=== PATIENT | male | born 1960 | race Caucasian/White ===

== ENCOUNTER 2023-10-21 13:07 | Inpatient (IN) | payer OTHER ==
--- NOTE | 2023-10-21 13:17 | ED ---
General Adult HPI - General Chief complaint: Nausea/Vomiting/Diarrhea Stated complaint: vomiting Time Seen by Provider: 10/21/23 13:13 Source: patient, family, EMS, RN notes reviewed Mode of arrival: EMS Limitations: no limitations - History of Present Illness Initial comments: Patient is a 62-year-old male present to the emergency department with concerns for nausea and vomiting. Onset of symptoms was around 11:30 AM. Patient has vomited multiple times, possibly up to 20. Patient still has nausea. Patient feels dehydrated. Patient states he may be slightly short of breath. No abdominal pain no constipation or diarrhea. No chest pain. Patient is a smoker and does have chronic dyspnea - Related Data Home Medications Medication Instructions Recorded Confirmed No Known Home Medications 10/21/23 10/21/23 Allergies Allergy/AdvReac Type Severity Reaction Status Date / Time No Known Allergies Allergy Verified 10/21/23 13:55 Review of Systems ROS Statement: Those systems with pertinent positive or pertinent negative responses have been documented in the HPI. ROS Other: All systems not noted in ROS Statement are negative. Constitutional: Denies: fever Eyes: Denies: eye pain ENT: Denies: ear pain Respiratory: Reports: as per HPI Cardiovascular: Denies: chest pain Gastrointestinal: Reports: nausea, vomiting. Denies: abdominal pain Genitourinary: Denies: dysuria Musculoskeletal: Denies: back pain Skin: Denies: rash Past Medical History Past Medical History: Myocardial Infarction ([place]) History of Any Multi-Drug Resistant Organisms: None Reported Additional Past Surgical History / Comment(s): 2 stents Smoking Status: Current every day smoker Past Alcohol Use History: Rare Past Drug Use History: None Reported General Exam Limitations: no limitations General appearance: alert Head exam: Present: normocephalic Eye exam: Present: normal appearance Neck exam: Present: normal inspection Respiratory exam: Present: normal lung sounds bilaterally Cardiovascular Exam: Present: regular rate, normal rhythm, normal heart sounds Expanded Peripheral pulses: 2+: Radial (R), Radial (L), Posterior Tibialis (R), Posterior Tibialis (L) GI/Abdominal exam: Present: soft. Absent: tenderness Extremities exam: Present: normal inspection. Absent: pedal edema, calf tenderness Neurological exam: Present: alert Psychiatric exam: Present: normal affect, normal mood Skin exam: Present: normal color Course Vital Signs 10/21/23 10/21/23 13:09 14:07 Pulse Rate 93 89 Respiratory 24 18 Rate Blood Pressure 105/70 116/76 O2 Sat by Pulse 100 99 Oximetry - Reevaluation(s) Reevaluation #1: 10/21/23 13:35 I did speak with Dr. Muhammad who did review EKGs and agrees no evidence of STEMI. EKG Findings - EKG Results: EKG: interpreted by ERMD (First-degree AV block AK 210. Left axis. Intraventricular conduction delay. Inferior Q waves. Artifact present. Nonspecific ST-T.), sinus rhythm Medical Decision Making - Medical Decision Making EKG #2 interpreted by myself shows sinus rhythm with a rate of 88. Left axis. Inferior Q waves. Nonspecific ST. Some artifact is present. EKG #3 interpreted by myself shows sinus rhythm with a rate of 86. Left axis. Intraventricular conduction delay. Inferior Q waves. EKG #4 interpreted by myself shows sinus rhythm with a rate of 86. AK 192. Left axis. Intraventricular conduction delay. Inferior Q waves. Nonspecific ST-T. Was pt. sent in by a medical professional or institution (, PA, [employer], urgent care, hospital, or care home...) When possible be specific @ -No Did you speak to anyone other than the patient for history (EMS, parent, family, police, friend...)? What history was obtained from this source @ -EMS helps provide history including presentation and there are concerns regarding EKG Did you review nursing and triage notes (agree or disagree)? Why? @ -I reviewed and agree with nursing and triage notes Were old charts reviewed (outside hosp., previous admission, EMS record, old EKG, old radiological studies, urgent care reports/EKG's, care home records)? Report findings @ -No old charts were reviewed Differential Diagnosis (chest pain, altered mental status, abdominal pain women, abdominal pain men, vaginal bleeding, weakness, fever, dyspnea, syncope, headache, dizziness, GI bleed, back pain, seizure, CVA, palpatations, mental health, musculoskeletal)? @ -Differential Abdominal Pain Men: Appendicitis, cholecystitis, diverticulosis, ischemic bowel, pancreatitis, hepatitis, UTI, gastroenteritis, AAA, incarcerated hernia, bowel obstruction, constipation, inflammatory bowel, hepatitis, peptic ulcer disease, splenic infarction, perforated viscus, testicular torsion, this is not meant to be an all-inclusive list differential Chest Pain: Stable Angina, Unstable Angina, STEMI, NSTEMI Aortic Dissection, Pneumothorax, Musculoskeletal, Esophageal Spasm GERD, Cholecystitis, Pancreatitis, Zoster, this is not meant to be an all-inclusive list. EKG interpreted by me (3pts min.). @ -As above X-rays interpreted by me (1pt min.). @ -Chest x-ray shows no acute process CT interpreted by me (1pt min.). @ -None done U/S interpreted by me (1pt. min.). @ -None done What testing was considered but not performed or refused? (CT, X-rays, U/S, labs)? Why? @ -None What meds were considered but not given or refused? Why? @ -None Did you discuss the management of the patient with other professionals (professionals i.e. , PA, [employer], lab, RT, psych nurse, social worker clinical, clinical dietician, teacher, marketing officer, spring encaser)? Give summary @ -Case was discussed with Dr. Muhammad who did review EKGs. Case also discussed with [facility], Dr. Chua who will admit covering hospital call Was smoking cessation discussed for >3mins.? @ -No Was critical care preformed (if so, how long)? @ -No Were there social determinants of health that impacted care today? How? (Homelessness, low income, unemployed, alcoholism, drug addiction, transportation, low edu. Level, literacy, decrease access to med. care, nursing home, rehab)? @ -No Was there de-escalation of care discussed even if they declined (Discuss DNR or withdrawal of care, Hospice)? DNR status @ -No What co-morbidities impacted this encounter? (DM, HTN, Smoking, COPD, CAD, Cancer, CVA, ARF, Chemo, Hep., AIDS, mental health diagnosis, sleep apnea, morbid obesity)? @ -Coronary artery disease Was patient admitted / discharged? Hospital course, mention meds given and route, prescriptions, significant lab abnormalities, going to OR and other pertinent info. @ -Patient reevaluated and starting to feel somewhat better. Nausea improved. Blood pressure improved. Still no chest pain. Patient and family are updated on results and plan. Patient will be admitted and cardiac enzymes will be rechecked. Undiagnosed new problem with uncertain prognosis? @ -No Drug Therapy requiring intensive monitoring for toxicity (Heparin, Nitro, Insulin, Cardizem)? @ -No Were any procedures done? @ -No Diagnosis/symptom? @ -Vomiting Acute, or Chronic, or Acute on Chronic? @ -Acute Uncomplicated (without systemic symptoms) or Complicated (systemic symptoms)? @ -Default Side effects of treatment? @ -No Exacerbation, Progression, or Severe Exacerbation? @ -No Poses a threat to life or bodily function? How? (Chest pain, [place], [place], pneumonia, PE, COPD, DKA, ARF, appy, cholecystitis, CVA, Diverticulitis, Homicidal, Suicidal, threat to staff... and all critical care pts) @ -No - Lab Data Result diagrams: 10/21/23 13:17 10/21/23 13:17 Lab Results 10/21/23 10/21/23 10/21/23 Range/Units 13:17 13:17 13:17 WBC 11.8 H (3.8-10.6) k/uL RBC 5.02 (4.30-5.90) m/uL Hgb 15.3 (13.0-17.5) gm/dL Hct 45.8 (39.0-53.0) % MCV 91.4 (80.0-100.0) fL MCH 30.4 (25.0-35.0) pg MCHC 33.3 (31.0-37.0) g/dL RDW 12.5 (11.5-15.5) % Plt Count 216 (150-450) k/uL MPV 7.4 Neutrophils % 80 % Lymphocytes % 12 % Monocytes % 6 % Eosinophils % 1 % Basophils % 0 % Neutrophils # 9.5 H (1.3-7.7) k/uL Lymphocytes # 1.4 (1.0-4.8) k/uL Monocytes # 0.7 (0-1.0) k/uL Eosinophils # 0.1 (0-0.7) k/uL Basophils # 0.1 (0-0.2) k/uL PT 12.0 (10.0-12.5) sec INR 1.1 (<1.2) APTT 23.7 (22.0-30.0) sec D-Dimer 0.31 (<0.60) mg/L FEU Sodium 139 (137-145) mmol/L Potassium 3.9 (3.5-5.1) mmol/L Chloride 107 (98-107) mmol/L Carbon Dioxide 25 (22-30) mmol/L Anion Gap 7 mmol/L BUN 16 (9-20) mg/dL Creatinine 0.93 (0.66-1.25) mg/dL Est GFR (CKD-EPI)AfAm >90 (>60 ml/min/1.73 sqM) Est GFR (CKD-EPI)NonAf 89 (>60 ml/min/1.73 sqM) Glucose 119 H (74-99) mg/dL Calcium 8.6 (8.4-10.2) mg/dL Total Bilirubin 0.6 (0.2-1.3) mg/dL AST 29 (17-59) U/L ALT 15 (4-49) U/L Alkaline Phosphatase 95 (38-126) U/L Troponin I (0.000-0.034) ng/mL Total Protein 6.5 (6.3-8.2) g/dL Albumin 3.4 L (3.5-5.0) g/dL Amylase 49 (30-110) U/L Lipase 114 (23-300) U/L // Range/Units 13:17 WBC (3.8-10.6) k/uL RBC (4.30-5.90) m/uL Hgb (13.0-17.5) gm/dL Hct (39.0-53.0) % MCV (80.0-100.0) fL MCH (25.0-35.0) pg MCHC (31.0-37.0) g/dL RDW (11.5-15.5) % Plt Count (150-450) k/uL MPV Neutrophils % % Lymphocytes % % Monocytes % % Eosinophils % % Basophils % % Neutrophils # (1.3-7.7) k/uL Lymphocytes # (1.0-4.8) k/uL Monocytes # (0-1.0) k/uL Eosinophils # (0-0.7) k/uL Basophils # (0-0.2) k/uL PT (10.0-12.5) sec INR (<1.2) APTT (22.0-30.0) sec D-Dimer (<0.60) mg/L FEU Sodium (137-145) mmol/L Potassium (3.5-5.1) mmol/L Chloride (98-107) mmol/L Carbon Dioxide (22-30) mmol/L Anion Gap mmol/L BUN (9-20) mg/dL Creatinine (0.66-1.25) mg/dL Est GFR (CKD-EPI)AfAm (>60 ml/min/1.73 sqM) Est GFR (CKD-EPI)NonAf (>60 ml/min/1.73 sqM) Glucose (74-99) mg/dL Calcium (8.4-10.2) mg/dL Total Bilirubin (0.2-1.3) mg/dL AST (17-59) U/L ALT (4-49) U/L Alkaline Phosphatase (38-126) U/L Troponin I 0.027 (0.000-0.034) ng/mL Total Protein (6.3-8.2) g/dL Albumin (3.5-5.0) g/dL Amylase (30-110) U/L Lipase (23-300) U/L Disposition Clinical Impression: Vomiting Disposition: ADMITTED IP TO THIS [facility] Is patient prescribed a controlled substance at d/c from ED?: No Time of Disposition: 14:06
[2023-10-21] MEDS: ONDANSETRON 4 MG/2 ML VIAL IVP STA (13:28)
[2023-10-21] MEDS: SODIUM CHLORIDE 0.9% 1,000 ML IV STA (13:28)
[2023-10-21] MEDS: FAMOTIDINE 20 MG/2 ML VIAL IV STA (13:31)
[2023-10-21 13:39] LABS: ALT 15 U/L (4-49); AST 29 U/L (17-59); African American GFR (CKD) >90 (>60 ml/min/1.73 sqM); Albumin 3.4 g/dL (3.5-5.0); Alkaline Phosphatase 95 U/L (38-126); Amylase 49 U/L (30-110); Anion Gap 7 mmol/L; Blood Urea Nitrogen 16 mg/dL (9-20); Calcium 8.6 mg/dL (8.4-10.2); Carbon Dioxide 25 mmol/L (22-30); Chloride 107 mmol/L (98-107); Glucose 119 mg/dL (74-99); Lipase 114 U/L (23-300); Non-African American GFR(CKD) 89 (>60 ml/min/1.73 sqM); Potassium 3.9 mmol/L (3.5-5.1); Sodium 139 mmol/L (137-145); Total Bilirubin 0.6 mg/dL (0.2-1.3); Total Protein 6.5 g/dL (6.3-8.2)
[2023-10-21 13:40] LABS: Basophils # (A) 0.1 k/uL (0-0.2); Basophils % (A) 0 %; Eosinophils # (A) 0.1 k/uL (0-0.7); Eosinophils % (A) 1 %; HCT 45.8 % (39.0-53.0); HGB 15.3 gm/dL (13.0-17.5); Lymphocytes # (A) 1.4 k/uL (1.0-4.8); Lymphocytes % (A) 12 %; MCH 30.4 pg (25.0-35.0); MCHC 33.3 g/dL (31.0-37.0); MCV 91.4 fL (80.0-100.0); Mean Platelet Volume 7.4; Monocytes # (A) 0.7 k/uL (0-1.0); Monocytes % (A) 6 %; Neutrophils # (A) 9.5 k/uL (1.3-7.7); Neutrophils % (A) 80 %; Platelet Count 216 k/uL (150-450); RBC 5.02 m/uL (4.30-5.90); RDW 12.5 % (11.5-15.5); WBC 11.8 k/uL (3.8-10.6)
[2023-10-21 13:42] LABS: INR 1.1 (<1.2); Partial Thromboplastin Time 23.7 sec (22.0-30.0)
--- NOTE | 2023-10-21 13:58 | XR ---
EXAMINATION TYPE: XR chest 1V portable DATE OF EXAM: 10/21/2023 1:38 PM CLINICAL INDICATION:Male, 62 years old with history of vomiting; [facility] COMPARISON: none TECHNIQUE: XR chest 1V portable Frontal view of the chest. FINDINGS: Lungs/Pleura: There is no evidence of pleural effusion, focal consolidation, or pneumothorax. Pulmonary vascularity: Unremarkable. Heart/mediastinum: Cardiomediastinal silhouette is enlarged and stable. Musculoskeletal: No acute osseous pathology. IMPRESSION: No acute cardiopulmonary disease/process.
[2023-10-21] MEDS ORDERED: ONDANSETRON 4 MG/2 ML VIAL IVP PRN (14:09)
[2023-10-21] MEDS ORDERED: NALOXONE 0.4 MG/ML 1 ML VIAL IV PRN (14:09)
[2023-10-21] MEDS ORDERED: ALPRAZolam 0.25 MG TAB PO PRN (15:07)
[2023-10-21] MEDS ORDERED: HYDROmorphone 0.5 MG/0.5 ML SYRINGE IVP PRN (15:07)
[2023-10-21] MEDS ORDERED: HYDROcodone/APAP 5-325MG 1 EACH TAB PO PRN (15:07)
[2023-10-21] MEDS: ASPIRIN 81 MG PO SCH (15:36)
[2023-10-21] MEDS: SODIUM CHLORIDE 0.9% 1,000 ML IV SCH (15:36)
[2023-10-21] MEDS: PANTOPRAZOLE 40 MG/10 ML VIAL IV SCH (16:07)
[2023-10-21] MEDS: NICOTINE 14MG/24HR PATCH TRANSDERM SCH (16:09)
[2023-10-21] MEDS: HEPARIN SODIUM 1,000 UN/ML (10ML VL) IV ONE (19:26)
[2023-10-21] MEDS: HEPARIN SOD,PORK IN 0.45% NACL 25,000 UNIT in 0.45% NACL 1 250ML.BAG IV SCH (19:27)
[2023-10-21 19:36] LABS: Basophils % (A) 0 %; Eosinophils % (A) 0 %; HCT 46.8 % (39.0-53.0); HGB 15.2 gm/dL (13.0-17.5); Lymphocytes % (A) 22 %; MCH 30.2 pg (25.0-35.0); MCHC 32.5 g/dL (31.0-37.0); MCV 92.9 fL (80.0-100.0); Mean Platelet Volume 7.4; Monocytes # (A) 0.7 k/uL (0-1.0); Monocytes % (A) 7 %; Neutrophils # (A) 6.3 k/uL (1.3-7.7); Neutrophils % (A) 69 %; Platelet Count 211 k/uL (150-450); RBC 5.03 m/uL (4.30-5.90); RDW 12.8 % (11.5-15.5); WBC 9.2 k/uL (3.8-10.6)
[2023-10-21 19:43] LABS: INR 1.2 (<1.2); Partial Thromboplastin Time 25.5 sec (22.0-30.0); Prothrombin Time 12.4 sec (10.0-12.5)
[2023-10-21] MEDS ORDERED: HEPARIN SODIUM,PORCINE 5,000 UNIT/ML 1 ML VIAL SQ SCH (21:00)
[2023-10-22] MEDS: HEPARIN SODIUM 1,000 UN/ML (10ML VL) IV PRN (01:54)
--- NOTE | 2023-10-22 02:55 | HP ---
HISTORY AND PHYSICAL CHIEF COMPLAINT: Nausea, vomiting, and epigastric pain. HISTORY OF PRESENT ILLNESS: This 62-year-old gentleman with a past medical history of myocardial infarction, stent, not being followed by primary physician in the outpatient setting, was not taking any home medications also. The patient felt epigastric pain, nausea, vomiting. The patient felt weak and tired and dizzy and the patient came to [facility] for further evaluation and treatment. EKG showed right QRS complex and PVCs. The patient was admitted for further evaluation and treatment. There is no history of any fever, rigors, or chills. The initial troponin was 0.027. PAST MEDICAL HISTORY: History of CAD, stent. The rest of the history and chart is also reviewed. HOME MEDICATIONS: None. ALLERGIES: None. FAMILY HISTORY: No history of heart disease or strokes. SOCIAL HISTORY: Continued smoking. REVIEW OF SYSTEMS: Fourteen-point review is negative except as mentioned. PHYSICAL EXAMINATION: VITAL SIGNS: Pulse is 80, blood pressure 116/76, respirations 18. HEENT: Conjunctivae normal. NECK: No jugular venous distention. CARDIOVASCULAR: S1, S2. RESPIRATIONS: Breath sounds diminished at the bases. No rhonchi. No crackles. ABDOMEN: Soft. Mild diffuse tenderness in the epigastrium. No guarding, no rigidity, no masses palpable. LEGS: No edema. No swelling. NERVOUS SYSTEM: No focal deficit. LABORATORY DATA: WBC 11.8, glucose 118. ASSESSMENT: 1. Epigastric pain, nausea, and vomiting, possibly acute gastritis, rule out acute myocardial infarction. 2. History of coronary artery disease, stent. 3. History of nicotine dependence. 4. History of noncompliance. RECOMMENDATIONS AND DISCUSSION: This 62-year-old gentleman presented with multiple complex medical issues. We will monitor the patient closely. Continue the current medications, current symptomatic treatment. Otherwise, at this time, I would recommend to rule out myocardial infarction. Cardiology consultation. 2D echo with Doppler. Antiplatelet agents. Prognosis is guarded because of multiple complex medical issues. Further recommendations to follow. See orders for further details. MMODL / IJN: [id number] /
[2023-10-22 03:57] LABS: INR 1.1 (<1.2); Prothrombin Time 12.2 sec (10.0-12.5)
[2023-10-22 04:04] LABS: Basophils # (A) 0.1 k/uL (0-0.2); Basophils % (A) 1 %; Eosinophils # (A) 0.1 k/uL (0-0.7); Eosinophils % (A) 2 %; HCT 43.5 % (39.0-53.0); HGB 14.9 gm/dL (13.0-17.5); Lymphocytes # (A) 3.1 k/uL (1.0-4.8); Lymphocytes % (A) 31 %; MCH 31.7 pg (25.0-35.0); MCHC 34.2 g/dL (31.0-37.0); MCV 92.8 fL (80.0-100.0); Monocytes # (A) 0.9 k/uL (0-1.0); Monocytes % (A) 9 %; Neutrophils # (A) 5.4 k/uL (1.3-7.7); Neutrophils % (A) 56 %; Platelet Count 213 k/uL (150-450); RBC 4.69 m/uL (4.30-5.90); RDW 13.1 % (11.5-15.5); WBC 9.8 k/uL (3.8-10.6)
[2023-10-22 04:12] LABS: ALT 14 U/L (4-49); AST 26 U/L (17-59); African American GFR (CKD) >90 (>60 ml/min/1.73 sqM); Albumin 3.1 g/dL (3.5-5.0); Alkaline Phosphatase 98 U/L (38-126); Anion Gap 2 mmol/L; Blood Urea Nitrogen 16 mg/dL (9-20); Calcium 8.6 mg/dL (8.4-10.2); Carbon Dioxide 26 mmol/L (22-30); Chloride 110 mmol/L (98-107); Glucose 91 mg/dL (74-99); Non-African American GFR(CKD) >90 (>60 ml/min/1.73 sqM); Sodium 138 mmol/L (137-145); Total Bilirubin 0.5 mg/dL (0.2-1.3); Total Protein 6.1 g/dL (6.3-8.2)
--- NOTE | 2023-10-22 08:06 | US ---
EXAMINATION TYPE: US gallbladder DATE OF EXAM: 10/22/2023 COMPARISON: NONE CLINICAL INDICATION: Male, 62 years old with history of cholelithiasis; Pain, weakness TECHNIQUE: Multiple sonographic images of the right upper quadrant are obtained. FINDINGS: EXAM MEASUREMENTS: Liver Length: 16.4 cm Gallbladder Wall: 0.1 cm CBD: 0.6 cm Right Kidney: 9.3 x 5.6 x 4.1 cm Pancreas: Tail obscured by overlying bowel gas Liver: Right lobe echogenic nonvascular lesion = 1.4 x 1.3 x 1.6 cm. Cystic lesion adjacent to GB = 0.4 x 0.5 x 0.5 cm Gallbladder: No stones or wall thickening seen at time of scan. Slightly patulous and lobulated in a ppearance. Evidence for sonographic Morotn's sign: neg CBD: Acceptable for patient's age. Right Kidney: No hydronephrosis or masses seen IMPRESSION: 1. 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 Follow-up ultrasound in 3-6 months to reassess. 2. No gallstones. Bile duct caliber of 6 mm, may be acceptable for patient's age.
[2023-10-22 08:50] LABS: Chol/HDL Ratio 5.06 Ratio; LDL Cholesterol,Calculated 107.5 mg/dL (0.0-131.0)
[2023-10-22] MEDS ORDERED: PANTOPRAZOLE 40 MG/10 ML VIAL IV SCH (09:00)
--- NOTE | 2023-10-22 13:42 | PN ---
PROGRESS NOTE DATE OF SERVICE: 10/22/2023 SUBJECTIVE: This is a 62-year-old gentleman with epigastric pain, had elevated troponin this morning indicating acute [id number] elevation myocardial infarction. Cardiology is following the patient closely. The patient apparently is noncompliant with the medications. EKG showed wide-complex, QRS complexes, and PVCs also. 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 Followup ultrasound has been recommended. No gallstones were noted. No chest pain or palpitation. PAST MEDICAL HISTORY: Reviewed. REVIEW OF SYSTEMS: A 14-point review is negative except as mentioned earlier. CURRENT MEDICATIONS: Reviewed include aspirin, dose and rest of medications reviewed. PHYSICAL EXAMINATION: VITAL SIGNS: Pulse 86, blood pressure 97/65, respirations 20. CHEST: Clear to auscultation. CARDIOVASCULAR: S1, S2 normal. ABDOMEN: Soft, nontender. No masses. LEGS: No edema, no swelling. LABORATORY DATA: Reviewed. The total cholesterol is 156. ASSESSMENT: 1. Epigastric pain, nausea, vomiting, possible acute [id number]-[id number] elevation myocardial infarction. 2. Troponin elevated up to 0.140. 3. History of CAD, stent. 4. History of nicotine dependence. 5. History of noncompliance. 6. 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 RECOMMENDATIONS AND DISCUSSION: I recommended to continue current management and continue symptomatic treatment, otherwise at this time I would recommend repeat labs. Closely follow with Cardiology. Continue with antiplatelet agents. The patient might require further workup including angiogram. Further recommendations will follow. Importance of compliance stressed. Further recommendations to follow. MMODL / IJN: [id number] / MTDD
[2023-10-22] MEDS: ATORVASTATIN 40 MG TAB PO SCH (18:36)
[2023-10-22] MEDS: MAG HYDROX/AL HYDROX/SIMETH 30 ML CUP PO PRN (19:59)
[2023-10-22] MEDS: METOPROLOL TARTRATE 25 MG TAB PO SCH (21:39)
[2023-10-23 10:43] LABS: Basophils # (A) 0.1 k/uL (0-0.2); Basophils % (A) 1 %; Eosinophils # (A) 0.1 k/uL (0-0.7); Eosinophils % (A) 1 %; HCT 42.1 % (39.0-53.0); HGB 14.6 gm/dL (13.0-17.5); Lymphocytes # (A) 2.2 k/uL (1.0-4.8); Lymphocytes % (A) 21 %; MCH 32.3 pg (25.0-35.0); MCHC 34.7 g/dL (31.0-37.0); MCV 93.2 fL (80.0-100.0); Mean Platelet Volume 7.8; Monocytes % (A) 10 %; Neutrophils # (A) 6.8 k/uL (1.3-7.7); Neutrophils % (A) 65 %; Platelet Count 191 k/uL (150-450); RBC 4.52 m/uL (4.30-5.90); WBC 10.4 k/uL (3.8-10.6)
[2023-10-23 10:48] LABS: ALT 17 U/L (4-49); AST 28 U/L (17-59); African American GFR (CKD) >90 (>60 ml/min/1.73 sqM); Albumin 3.3 g/dL (3.5-5.0); Alkaline Phosphatase 100 U/L (38-126); Anion Gap 1 mmol/L; Blood Urea Nitrogen 15 mg/dL (9-20); Calcium 8.5 mg/dL (8.4-10.2); Carbon Dioxide 31 mmol/L (22-30); Chloride 105 mmol/L (98-107); Glucose 98 mg/dL (74-99); Non-African American GFR(CKD) >90 (>60 ml/min/1.73 sqM); Potassium 4.3 mmol/L (3.5-5.1); Sodium 137 mmol/L (137-145); Total Bilirubin 0.9 mg/dL (0.2-1.3); Total Protein 6.2 g/dL (6.3-8.2)
--- NOTE | 2023-10-23 10:56 | P.CRDCN ---
History of Present Illness History of present illness: This is Dr. Morales dictating a consult on this patient The patient was interviewed and examined IMPRESSION / ASSESSMENT: Epigastric discomfort with nausea, upper GI symptoms No chest discomfort Abnormal EKG with frequent PVCs and left bundle branch block morphology The QRS morphology is variable Current smoker PLAN: 2D echo and Doppler study to assess cardiac structure and function Hemoglobin A1c Lipid panel Assessment of gallbladder and HIDA scan if needed HPI The patient is complaining of epigastric discomfort since yesterday. No discomfort at this time but he pointed to his epigastrium. He was nauseous he was vomiting he was not able to keep down even coffee yesterday and felt poorly. He still feels a little dizzy and lightheaded. He complained of cramping discomfort in the upper abdomen not in the chest Cardiology was consulted on account of abnormal troponins and abnormal EKG with IVCD and frequent PVCs. 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 EXAMINATION: Normal heart sounds no murmurs irregular rhythm on account of PVCs Heart sounds S1-S2 normal Lungs are clear Patient is resting comfortably in bed No epigastric tenderness no REVIEW OF LABS, ECG & MEDICAL DATA Labs reviewed. Normal white count normal hemoglobin Normal electrolytes normal liver function test normal kidney functions Minimally abnormal troponin with a rising trend Abnormal EKG with IVCD mostly of left bundle branch block morphology Past Medical History Past Medical History: Myocardial Infarction ([place]) History of Any Multi-Drug Resistant Organisms: None Reported Additional Past Surgical History / Comment(s): 2 stents Smoking Status: Current every day smoker Past Alcohol Use History: Rare Past Drug Use History: None Reported - Past Family History Mother Family Medical History: Cancer Medications and Allergies Home Medications Medication Instructions Recorded Confirmed Type No Known Home Medications 10/21/23 10/21/23 History Allergies Allergy/AdvReac Type Severity Reaction Status Date / Time No Known Allergies Allergy Verified 10/21/23 13:55 Physical Exam Vitals: Vital Signs Temp Pulse Pulse Resp BP BP Pulse Ox 10/22/23 08:00 98 F 86 20 97/65 96 10/22/23 06:50 98.3 F 10/22/23 05:29 85 18 101/67 94 L 10/22/23 01:57 82 16 96/63 94 L 10/21/23 23:32 78 16 96/55 95 10/21/23 19:31 82 16 111/68 97 10/21/23 16:16 80 16 113/75 98 10/21/23 14:07 89 18 116/76 99 10/21/23 13:09 93 24 105/70 100 Intake and Output 10/21/23 10/22/23 10/22/23 22:59 06:59 14:59 Intake Total 52.8 Balance 52.8 Intake: Intake, IV Titration 52.8 Amount Heparin Sod,Pork in 0.45% 52.8 NaCl 25,000 unit In 0.45 % NaCl 1 250ml.bag @ 12 UNITS/KG/HR 8.165 mls/hr IV .Q24H [facility] Rx#: [id number] Results 10/22/23 02:38 10/22/23 02:38 Cardiac Enzymes 10/21/23 10/21/23 10/21/23 Range/Units 13:17 13:17 16:03 AST 29 (17-59) U/L Troponin I 0.027 0.109 H* (0.000-0.034) ng/mL 10/21/23 10/22/23 Range/Units 19:20 02:38 AST 26 (17-59) U/L Troponin I 0.140 H* (0.000-0.034) ng/mL Coagulation 10/21/23 10/21/23 10/22/23 Range/Units 13:17 19:20 00:21 PT 12.0 12.4 (10.0-12.5) sec APTT 23.7 25.5 40.5 H (22.0-30.0) sec 10/22/23 10/22/23 Range/Units 02:38 07:29 PT 12.2 (10.0-12.5) sec APTT 39.1 H (22.0-30.0) sec CBC 10/21/23 10/21/23 10/22/23 Range/Units 13:17 19:20 02:38 WBC 11.8 H 9.2 9.8 (3.8-10.6) k/uL RBC 5.02 5.03 4.69 (4.30-5.90) m/uL Hgb 15.3 15.2 14.9 (13.0-17.5) gm/dL Hct 45.8 46.8 43.5 (39.0-53.0) % Plt Count 216 211 213 (150-450) k/uL Comprehensive Metabolic Panel 10/21/23 10/22/23 Range/Units 13:17 02:38 Sodium 139 138 (137-145) mmol/L Potassium 3.9 4.0 (3.5-5.1) mmol/L Chloride 107 110 H (98-107) mmol/L Carbon Dioxide 25 26 (22-30) mmol/L BUN 16 16 (9-20) mg/dL Creatinine 0.93 0.80 (0.66-1.25) mg/dL Glucose 119 H 91 (74-99) mg/dL Calcium 8.6 8.6 (8.4-10.2) mg/dL AST 29 26 (17-59) U/L ALT 15 14 (4-49) U/L Alkaline Phosphatase 95 98 (38-126) U/L Total Protein 6.5 6.1 L (6.3-8.2) g/dL Albumin 3.4 L 3.1 L (3.5-5.0) g/dL Current Medications Generic Name Dose Route Start Last Admin Trade Name Freq PRN Reason Stop Dose Admin Hydrocodone Bitart/Acetaminophen 1 each 10/21/23 15:07 Hydrocodone/Apap 5-325mg 1 Each Tab PO Q6HR PRN Pain Alprazolam 0.25 mg 10/21/23 15:07 Alprazolam 0.25 Mg Tab PO TID PRN Anxiety Aspirin 81 mg 10/21/23 15:15 10/21/23 15:36 Aspirin 81 Mg PO Not Given DAILY [facility] Heparin Sodium (Porcine) 0 unit 10/21/23 18:56 10/22/23 01:54 Heparin Sodium 1,000 Un/Ml (10ml Vl) IV 1,700 unit PER PROTOCOL PRN Administration Low PTT Protocol Hydromorphone HCl 0.5 mg 10/21/23 15:07 Hydromorphone 0.5 Mg/0.5 Ml Syringe IVP Q6HR PRN Severe Pain (Scale 7 to 10) Sodium Chloride 1,000 mls @ 75 mls/hr 10/21/23 14:15 10/22/23 01:57 Saline 0.9% IV 75 mls/hr .[id number] [facility] Administration Heparin Sodium/Sodium Chloride 250 mls @ 8.165 mls/hr 10/21/23 19:00 10/22/23 01:55 25,000 unit/ Sodium Chloride IV 14 units/kg/hr .Q24H [facility] 9.525 mls/hr Titration Protocol 12 UNITS/KG/HR Naloxone HCl 0.2 mg 10/21/23 14:09 Naloxone 0.4 Mg/Ml 1 Ml Vial IV Q2M PRN Opioid Reversal Nicotine 1 patch 10/21/23 15:15 10/21/23 16:09 Nicotine 14mg/24hr Patch TRANSDERM Not Given DAILY [facility] Ondansetron HCl 4 mg 10/21/23 14:09 Ondansetron 4 Mg/2 Ml Vial IVP Q8HR PRN Nausea And Vomiting Pantoprazole Sodium 40 mg 10/21/23 15:06 10/21/23 21:00 Pantoprazole 40 Mg/10 Ml Vial IV 40 mg BID [facility] Administration Intake and Output 10/21/23 10/22/23 10/22/23 22:59 06:59 14:59 Intake Total 52.8 Balance 52.8 Intake: Intake, IV Titration 52.8 Amount Heparin Sod,Pork in 0.45% 52.8 NaCl 25,000 unit In 0.45 % NaCl 1 250ml.bag @ 12 UNITS/KG/HR 8.165 mls/hr IV .Q24H [facility] Rx#: [id number] 10/22/23 02:38 10/22/23 02:38
[2023-10-23] MEDS ORDERED: HEPARIN SODIUM 1,000 UN/ML (10ML VL) IV PRN (11:12)
--- NOTE | 2023-10-23 11:48 | CA ---
Transthoracic Echo Report Name: Brad Vaz Age: 62 Gender: M : 1960 Exam Date: 10/23/2023 07:47 Exam Location: [facility] Ht (in): 64 Wt (lb): 150 Ordering Physician: Alonso Oglesby MD Attending/Referring Phys: Count Team Member Cherry Priest RDCS Procedure CPT: Indications: CAD Cardiac Hx: stents Technical Quality: Fair Contrast 1: Total Dose (mL): Contrast 2: Total Dose (mL): MEASUREMENTS (Male / Female) Normal Values 2D ECHO LV Diastolic Diameter PLAX 7.1 cm 4.2 - 5.9 / 3.9 - 5.3 cm LV Systolic Diameter PLAX 6.6 cm IVS Diastolic Thickness 0.9 cm 0.6 - 1.0 / 0.6 - 0.9 cm LVPW Diastolic Thickness 0.8 cm 0.6 - 1.0 / 0.6 - 0.9 cm LV Relative Wall Thickness 0.2 RV Internal Dim ED PLAX 3.8 cm LA Systolic Diameter LX 4.6 cm 3.0 - 4.0 / 2.7 - 3.8 cm LV Diastolic Volume MOD BP 255.3 cm??? 67 - 155 / 56 - 104 cm??? LV Systolic Volume MOD BP 188.3 cm??? 22 - 58 / 19 - 49 cm??? LV Ejection Fraction MOD BP 26.2 % >= 55 % LV Cardiac Index MOD BP 3412.2 cm???/min???m??? LV Diastolic Volume MOD 4C 214.7 cm??? LV Systolic Volume MOD 4C 153.0 cm??? LV Ejection Fraction MOD 4C 28.8 % LV Cardiac Index MOD 4C 3148.7 cm???/min???m??? LV Diastolic Length 4C 9.1 cm LV Systolic Length 4C 8.4 cm LV Diastolic Volume MOD 2C 268.5 cm??? LV Systolic Volume MOD 2C 196.5 cm??? LV Ejection Fraction MOD 2C 26.8 % LV Cardiac Index MOD 2C 3668.9 cm???/min???m??? LV Diastolic Length 2C 10.3 cm LV Systolic Length 2C 10.0 cm LA Volume 111.8 cm??? 18 - 58 / 22 - 52 cm??? LA Volume Index 63.3 cm???/m??? 16 - 28 cm???/m??? M-MODE Aortic Root Diameter MM 3.4 cm AV Cusp Separation MM 2.0 cm DOPPLER AV Peak Velocity 126.6 cm/s AV Peak Gradient 6.4 mmHg MV Area PHT 4.1 cm??? MR Peak Velocity 424.5 cm/s MR Peak Gradient 72.1 mmHg MV Deceleration Time 138.0 ms TR Peak Velocity 303.5 cm/s TR Peak Gradient 36.8 mmHg Right Ventricular Systolic Press 41.8 mmHg FINDINGS Left Ventricle Left ventricular ejection fraction is estimated at 20-25 %. Severely increased left ventricular diastolic diameter. Severely increased left ventricular diastolic volume. Severely increased left ventricular systolic volume. Severely decreased left ventricular ejection fraction. Global hypokinesis Right Ventricle RV not well-visualized. Mild pulmonary hypertension. Right Atrium Normal right atrial size. No right atrial thrombus or mass seen. Left Atrium Severe LA dilatation Mitral Valve Structurally normal mitral valve. Severe mitral regurgitation. Aortic Valve Trileaflet aortic valve. No aortic valve stenosis or regurgitation. Tricuspid Valve Structurally normal tricuspid valve. Mild tricuspid regurgitation. Pulmonic Valve Pulmonic valve not well visualized. Pericardium No pericardial or pleural effusion. Aorta Normal size aortic root and proximal ascending aorta. CONCLUSIONS LVEF 20% Severely dilated LV cavity. Mild LVH Severely reduced global LV systolic function. Hypokinetic inferolateral wall Tethered posterior mitral leaflet with severe mitral regurgitation Severe LA dilatation No pericardial effusion. Previewed by: Dr Charles Patterson (Electronically Signed) Final Date: 23 Oct 2023 11:47
[2023-10-23] MEDS: HEPARIN SOD,PORK IN 0.45% NACL 25,000 UNIT in 0.45% NACL 1 250ML.BAG IV SCH (11:57)
[2023-10-23] MEDS ORDERED: ALPRAZolam 0.5 MG TAB PO PRN (13:54)
[2023-10-23] MEDS ORDERED: NITROGLYCERIN SL TABS 0.4 MG TAB SUBLINGUAL PRN (13:54)
[2023-10-23] MEDS ORDERED: ALPRAZolam 0.25 MG TAB PO PRN (13:54)
--- NOTE | 2023-10-23 13:57 | P.PN ---
Subjective HISTORY OF PRESENT ILLNESS: Patient examined this morning. Patient's family is present. Patient currently denies any chest pain or pressure. He denies any shortness of breath. He does report an episode of dizziness and shortness of breath yesterday when ambulating to the bathroom. Echocardiogram completed revealing ejection fraction 20 to 25%, mild pulm hypertension, severe MR PHYSICAL EXAM: VITAL SIGNS: Reviewed. GENERAL: Well-developed in no acute distress. NECK: Supple. No JVD or thyromegaly LUNGS: Respirations even and unlabored. Lungs essentially clear to auscultation bilaterally. HEART: Regular rate and rhythm. S1 and S2 heard. EXTREMITIES: Normal range of motion. No clubbing or cyanosis. Peripheral pulses intact. No lower extremity edema ASSESSMENT: Epigastric discomfort with nausea Non-STEMI Severe cardiomyopathy, 20 to 25%, ischemic versus nonischemic Coronary artery disease with previous stenting in [place] greater than 15 years ago Abnormal EKG with frequent PVCs and variability in the QRS morphology Severe mitral regurgitation Nicotine dependence PLAN: Continue IV heparin Continue aspirin, atorvastatin, metoprolol Smoking cessation recommended. Patient currently on a nicotine patch. Patient to be referred to [place] quit line upon discharge. Patient's blood pressures are on the lower side with a systolic around 100-105. Will consider adding cardiomyopathy medication regimen pending trend of blood pressures N.p.o. at midnight Patient to undergo cardiac catheterization tomorrow with Dr. Patterson Further recommendations pending patient course Nurse practitioner note has been reviewed by physician. Signing provider agrees with the documented findings, assessment, and plan of care documented by DIRECTOR OF SPECIAL EVENTS as a scribe. Objective - Vital Signs Vital signs: Vital Signs Temp 98.2 F 10/23/23 04:00 Pulse 89 10/23/23 08:00 Resp 16 10/23/23 08:00 BP 112/56 10/23/23 08:00 Pulse Ox 97 10/23/23 09:33 FiO2 Intake & Output 10/22/23 10/23/23 10/23/23 18:59 06:59 18:59 Intake Total 1859.844 250 20 Output Total 300 Balance 1859.844 -50 20 Weight 68.039 kg Intake: IV 118.74 10 20 Heparin Sod,Pork in 0.45% 118.74 NaCl 25,000 unit In 0.45 % NaCl 1 250ml.bag @ 12 UNITS/KG/HR 8.165 mls/hr IV .Q24H [facility] Rx#: [id number] Invasive Line 1 10 Invasive Line 2 10 10 Intake, IV Titration 1071.104 Amount Heparin Sod,Pork in 0.45% 171.104 NaCl 25,000 unit In 0.45 % NaCl 1 250ml.bag @ 12 UNITS/KG/HR 8.165 mls/hr IV .Q24H [facility] Rx#: [id number] Sodium Chloride 0.9% 1, 900 000 ml @ 75 mls/hr IV . [id number] [facility] Rx#:[id number] Oral 670 240 Output: Urine 300 Other: Voiding Method Urinal Urinal # Voids 1 1 - Labs CBC & Chem 7: 10/23/23 09:28 10/23/23 09:28 Labs: Abnormal Lab Results - Last 24 Hours (Table) 10/22/23 10/23/23 10/23/23 Range/Units 15:42 09:28 09:28 APTT 59.2 H 56.1 H (22.0-30.0) sec Carbon Dioxide 31 H (22-30) mmol/L Total Protein 6.2 L (6.3-8.2) g/dL Albumin 3.3 L (3.5-5.0) g/dL
--- NOTE | 2023-10-23 21:26 | PN ---
PROGRESS NOTE DATE OF SERVICE: 10/23/2023 SUBJECTIVE: This 62-year-old gentleman was admitted with epigastric pain and nausea, had features of acute jle-IY-nzybetb-elevation myocardial infarction. The patient is noncompliant with the medications previously. The 2D echo showed severely reduced global LV function. No chest pain, no palpitation. OBJECTIVE: VITAL SIGNS: Pulse is 83, blood pressure 110/68, and respirations 16. HEENT: Conjunctivae normal. CARDIOVASCULAR: S1, S2. RESPIRATIONS: Few scattered rhonchi. ABDOMEN: Soft. NERVOUS SYSTEM: Nonfocal. LABORATORY DATA: Reviewed. ASSESSMENT: 1. Acute dxp-RT-lclpofm elevation myocardial infarction. 2. Troponin elevated up to 0.140. 3. Possible ischemic cardiomyopathy, ejection fraction 25%. 4. History of CAD stent. 5. History of nicotine dependence. 6. History of noncompliance. 7. A 1.6-cm possible hepatic angioma for followup outpatient. RECOMMENDATIONS: Recommended to continue current management, continue symptomatic treatment. Continue with antiplatelet agents, continue with beta blockers. Closely follow with Cardiology. Otherwise, heparin. Guarded prognosis. Further recommendations to follow. Follow up with the primary physician as well as Cardiology. MMODL / IJN: [id number] /
[2023-10-24] MEDS: SODIUM CHLORIDE 0.9% 1,000 ML in EMPTY BAG 1 BAG IV SCH (02:00)
[2023-10-24] MEDS: ATORVASTATIN 80 MG TAB PO ONE (04:36)
[2023-10-24] MEDS: ASPIRIN 325 MG TAB PO ONE (04:36)
[2023-10-24] MEDS ORDERED: HEPARIN SODIUM,PORCINE (1 ML) 2,500 UNIT in SODIUM CHLORIDE 0.9% 250 ML IRRIGATION PRN (07:00)
[2023-10-24] MEDS ORDERED: HEPARIN SODIUM,PORCINE 10,000 UNIT in SODIUM CHLORIDE 0.9% 1,000 ML IRRIGATION PRN (07:00)
[2023-10-24] MEDS: SODIUM CHLORIDE 0.9% 1,000 ML IV ONE (07:13)
[2023-10-24] MEDS: MIDAZOLAM 2 MG/2 ML VIAL IVP ONE (07:34)
[2023-10-24] MEDS: LIDOCAINE 1% INJ 10MG/ML (20 ML MDV) SQ ONE (07:36)
[2023-10-24] MEDS: fentaNYL (PF) 50 MCG/1 ML VIAL IVP ONE (07:36)
[2023-10-24] MEDS: VERAPAMIL SYRINGE (5 MG/10 ML) INTRAARTER ONE (07:38)
[2023-10-24] MEDS: IOPAMIDOL-370 100ML BTL INJ ONE (07:54)
--- NOTE | 2023-10-24 08:13 | P.CARDCATH ---
Date of Procedure: 10/24/23 Description of Procedure: DIAGNOSTIC CORONARY ANGIOGRAPHY and LEFT HEART CATH REPORT PROCEDURES PERFORMED: Left heart catheterization Selective coronary angiography Moderate conscious sedation 22 mins Right radial access INDICATION: NSTEMI, cardiomyopathy and substernal chest pressure. 62-year-old with prior history of CAD requiring PCI 15 years ago at [place]. He has not followed up with any physicians lately. 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 He presents to the hospital because of substernal chest pressure- like sensation. On admission he had evidence of elevated troponin. His echocardiogram showed an EF of 20 to 25% with inferolateral hypokinesia with moderate to severe mitral regurgitation and left atrial dilatation with evidence of elevated LA filling pressures. He was scheduled for a left heart c atheterization to look for the etiology of NSTEMI and cardiomyopathy. CONSENT: I have explained the procedural steps of above-mentioned procedures in layman's terms to the patient. I discussed the risks (including but not limited to stroke, emergent vascular or cardiac surgery or ), benefits and alternative therapies for the above-mentioned procedure. I discussed the risks of sedation/analgesia and blood product administration (if indicated). The patient has indicated understanding and acceptance of these risks. Conscious Sedation: Patient's ECG, heart rate, blood pressure, pulse oximetry were monitored throughout the duration of procedure under my direct supervision. 1 mg Versed and 25 mg Fentanyl were used for induction of moderate conscious sedation. Total duration of moderate concious sedation 22 minutes. PROCEDURE: After explaining the risks, benefits and alternatives of the above mentioned procedures in detail to the patient, informed consent was obtained. Patient was taken to the catheterization lab, prepped and draped in usual sterile fashion using universal precuations. Barbow and everardo test were performed to confirm adequate perfusion to fingers. 1% lidocaine was infiltrated over the right radial artery. A 6-Malian sheath was placed and secured in the right radial artery using modified Seldinger techniqu e. The sheath was flushed and 5 mg verapamil was administered intra-arterially. J tipped wire was advanced under fluoroscopic guidance. Once the wire tip reached aortic root 4000 units of IV heparin was given. Over the wire JR4 diagnostic catheter was advanced. The wire in place the catheter was manipulated to cross the aortic valve and entered into LV under fluoroscopy guidance. The wire was removed and the catheter was flushed. LV pressures were obtained and pullback was performed under fluoroscopy. Catheter was manipulated to selectively engage the right coronary ostium. Right coronary angiography was performed in different angiographic projections. The JR4 diagnostic catheter was exchanged for a JL 3.5 diagnostic catheter over the J-wire. The wire was removed, catheter was flushed and manipulated under fluoroscopy to selectively engaged the left coronary ostium. Left coronary angioplasty was performed in different angiographic projections. Catheter was removed over the wire. Radial sheath was flushed. The right radial sheath was removed and a TR band was placed with excellent patent hemostasis was achieved. The patient tolerated the procedure well. Patient was transported back to the post catheterization holding area in stable condition. Angiographic images were reviewed in detail. HEMODYNAMICS: Aortic Pressure: 100/60 mmHg. LV pressure: 100/12 mmHg. LVEDP 30 mmHg. There was no significant gradient across the aortic valve. SELECTIVE CORONARY ARTERIOGRAPHY: LEFT MAIN: The left main is a large caliber vessel which bifurcates into the LAD and circumflex. Left main has mild luminal irregularities 10%. LEFT ANTERIOR DESCENDING CORONARY ARTERY: LAD is a large caliber vessel which wraps around to the apex. Proximal and mid LAD has mild luminal irregularities in the range of 10%. Distal LAD appears angiographically normal. LAD gives rise to 3 small diagonal branches appears angiographically normal. LEFT CIRCUMFLEX CORONARY ARTERY: It is nondominant vessel. Just after the origin of LCx, proximal LCx has 100% occlusion prior to a previous stent. There are left to left collaterals filling 2 distal OM branches. RIGHT CORONARY ARTERY: Dominant vessel. The right coronary artery is a large caliber vessel. It has mild luminal regularities. It gives rise to PDA and PL branches which are medium caliber and is angiographically normal. IMPRESSION: 100% occlusion of proximal LCx with KATARINA 0 flow Left left collaterals filling OM branches Elevated LVEDP Mild CAD otherwise PLAN: Discussed the case with Dr. Muhammad and see if patient will be a good candidate for PCI. Performing Physician Charles Patterson MD, FACC, RPVI Thank you for allowing [facility] to participate in this patient's care. Feel free to reach out in case of any followup questions.
[2023-10-24 10:11] LABS: INR 1.1 (<1.2); Prothrombin Time 12.1 sec (10.0-12.5)
[2023-10-24 10:13] LABS: African American GFR (CKD) >90 (>60 ml/min/1.73 sqM); Anion Gap 3 mmol/L; Blood Urea Nitrogen 14 mg/dL (9-20); Calcium 8.5 mg/dL (8.4-10.2); Carbon Dioxide 27 mmol/L (22-30); Chloride 107 mmol/L (98-107); Glucose 104 mg/dL (74-99); Non-African American GFR(CKD) >90 (>60 ml/min/1.73 sqM); Potassium 4.7 mmol/L (3.5-5.1); Sodium 137 mmol/L (137-145)
[2023-10-24 10:18] LABS: Basophils % (A) 0 %; Eosinophils # (A) 0.1 k/uL (0-0.7); Eosinophils % (A) 1 %; HCT 40.9 % (39.0-53.0); HGB 13.6 gm/dL (13.0-17.5); Lymphocytes % (A) 21 %; MCH 30.7 pg (25.0-35.0); MCHC 33.1 g/dL (31.0-37.0); MCV 92.8 fL (80.0-100.0); Mean Platelet Volume 7.9; Monocytes # (A) 0.9 k/uL (0-1.0); Monocytes % (A) 9 %; Neutrophils # (A) 6.4 k/uL (1.3-7.7); Neutrophils % (A) 66 %; Platelet Count 181 k/uL (150-450); RBC 4.41 m/uL (4.30-5.90); RDW 12.9 % (11.5-15.5); WBC 9.7 k/uL (3.8-10.6)
[2023-10-24] MEDS: SPIRONOLACTONE 25 MG TAB PO SCH (12:31)
--- NOTE | 2023-10-24 15:34 | P.PN ---
Subjective Patient resting comfortably in bed denies any upper abdominal symptoms denies any chest discomfort No dizziness no lightheadedness no chest pain looks comfortable On examination his blood pressure 112/67 mmHg pulse rate in the 80s afebrile Breath sounds are clear no rhonchi no crackles Cardiac catheterization showed aortic pressure 100/60 mmHg LVEDP of 30 mmHg No gradient across the aortic valve Mild disease in the LAD 100% occlusion of the proximal LCx proximal to a prior stent Left to left collaterals filling the distal obtuse marginal branches Mild RCA disease Severely dilated left ventricular cavity with increased LV mass Hypokinetic inferior lateral wall Left ventricular ejection fraction less than 20% Severe left atrial enlargement Severe mitral regurgitation structurally normal valve with tethering of the posterior mitral leaflet Normal white count Normal hemoglobin Normal platelet count Sodium 137, potassium 4.7 BUN 14 and creatinine 0.86 TSH normal at 1.3 Impression Severe cardiomyopathy ejection fraction less than 20% Congestive heart failure class III with LVEDP of 30 mmHg Known coronary artery disease, single-vessel disease with an occluded left circumflex, prior coronary stenting in that area with left to left collaterals to the obtuse marginal branches His single-vessel coronary artery disease does NOT explain his globally reduced LV systolic function to less than 20% TSH is normal Twelve-lead EKG shows IVCD with QRS fractionation with a very wide QRS, frequent PVCs and biatrial enlargement Plan Gradually maximize heart failure therapies as an inpatient Start Farxiga 10 mg p.o. daily Start spironolactone 25 mg p.o. daily Continue metoprolol succinate 25 mg p.o. daily Add losartan 25 mg p.o. daily Continue baby aspirin and atorvastatin BMP and magnesium tomorrow Consider switching to carvedilol tomorrow and increasing the dose of spironolactone Objective - Vital Signs Vital signs: Vital Signs Temp 97.9 F 10/24/23 04:00 Pulse 82 10/24/23 12:00 Resp 16 10/24/23 12:00 BP 106/56 10/24/23 12:00 Pulse Ox 100 10/24/23 09:30 FiO2 Intake & Output 10/23/23 10/24/23 10/24/23 18:59 06:59 18:59 Intake Total 578.375 40 821 Output Total 200 Balance 578.375 -160 821 Intake: IV 40 40 165 Invasive Line 1 20 20 20 Invasive Line 2 20 20 20 Intake, IV Titration 64.375 300 Amount Heparin Sod,Pork in 0.45% 64.375 NaCl 25,000 unit In 0.45 % NaCl 1 250ml.bag @ 12 UNITS/KG/HR 8.165 mls/hr IV .Q24H [facility] Rx#: [id number] Sodium Chloride 0.9% 1, 300 000 ml @ 75 mls/hr IV . [id number] [facility] Rx#:[id number] Oral 474 356 Output: Urine 200 Other: Voiding Method Urinal Urinal Urinal # Voids 2 1 - Labs CBC & Chem 7: 10/24/23 09:10 10/24/23 09:10 Labs: Abnormal Lab Results - Last 24 Hours (Table) 10/23/23 10/24/23 Range/Units 17:53 09:10 APTT 45.4 H (22.0-30.0) sec Glucose 104 H (74-99) mg/dL
[2023-10-24] MEDS: LOSARTAN 25 MG TAB PO SCH (16:48)
--- NOTE | 2023-10-24 20:10 | P.PN ---
Subjective Progress Note Date: 10/24/23 This is a 62-year-old male who was recently admitted with chest pain nausea along with epigastric pain with concerns of acute NSTEMI being closely monitored. Cardiology following and patient is status post cardiac catheterization which revealed 100% occlusion of the proximal left circumflex, left collateral filling branches elevated LV and mild coronary artery disease. Patient does have a past medical history of stenting he reports over 15 years ago and currently has no primary care provider and has not followed up with a label designer since then. Patient with cardiology following closely and dis cussing further about possible PCI. Patient noted to have an EF of less than 20% with congestive heart failure and severe cardiomyopathy. Discussion being had about a Tapp[employer] as well. Case management following currently working with [employer] as patient currently has no insurance. Patient is afebrile denies any nausea or vomiting, is tolerating diet. review of systems: Constitutional: reports of fatigue, no fever, or chills Cardiovascular: No reports of chest pain or palpitations Respiratory: reports of shortness of breath with exertion GI: No reports of nausea, no reports of vomiting, tolerating somewhat of diet : No reports of dysuria or retention Neurovascular: reports of generalized weakness All medications have been reviewed Active Medications Hydrocodone Bitart/Acetaminophen (Hydrocodone/Apap 5-325mg 1 Each Tab) 1 each PO Q6HR PRN PRN Reason: Pain Al Hydroxide/Mg Hydroxide (Mag Hydrox/Al Hydrox/Simeth 30 Ml Cup) 30 ml PO Q4HR PRN PRN Reason: GI Upset Last Admin: 10/22/23 19:59 Dose: 30 ml Alprazolam (Alprazolam 0.25 Mg Tab) 0.25 mg PO Q6HR PRN PRN Reason: Mild Anxiety Alprazolam (Alprazolam 0.5 Mg Tab) 0.5 mg PO Q6HR PRN PRN Reason: Moderate Anxiety Aspirin (Aspirin 81 Mg) 81 mg PO DAILY [facility] Last Admin: 10/24/23 04:36 Dose: Not Given Atorvastatin Calcium (Atorvastatin 40 Mg Tab) 40 mg PO DAILY [facility] Last Admin: 10/24/23 04:36 Dose: Not Given Dapagliflozin (Dapagliflozin Propanediol 10 Mg Tablet) 10 mg PO DAILY [facility] Heparin Sodium (Porcine) (Heparin Sodium 1,000 Un/Ml (10ml Vl)) 0 unit IV PER PROTOCOL PRN; Protocol PRN Reason: Low PTT Hydromorphone HCl (Hydromorphone 0.5 Mg/0.5 Ml Syringe) 0.5 mg IVP Q6HR PRN PRN Reason: Severe Pain (Scale 7 to 10) Heparin Sodium (Porcine) 10, (000 unit/ Sodium Chloride) 1,001 mls @ 999 mls/hr IRRIGATION ONCE PRN PRN Reason: INTRA-OP Stop: 10/24/23 23:00 Heparin Sodium (Porcine) 2,500 (unit/ Sodium Chloride) 250.5 mls @ 250 mls/hr IRRIGATION ONCE PRN PRN Reason: INTRA-OP Stop: 10/24/23 23:00 Losartan Potassium (Losartan 25 Mg Tab) 25 mg PO DAILY@1845 [facility] Last Admin: 10/24/23 16:48 Dose: 25 mg Metoprolol Succinate (Metoprolol Succinate (Er) 25 Mg Tab.Er.24h) 25 mg PO DAILY [facility] Naloxone HCl (Naloxone 0.4 Mg/Ml 1 Ml Vial) 0.2 mg IV Q2M PRN PRN Reason: Opioid Reversal Nicotine (Nicotine 14mg/24hr Patch) 1 patch TRANSDERM DAILY [facility] Last Admin: 10/24/23 09:00 Dose: Not Given Nitroglycerin (Nitroglycerin Sl Tabs 0.4 Mg Tab) 0.4 mg SUBLINGUAL Q5M PRN PRN Reason: Chest Pain Ondansetron HCl (Ondansetron 4 Mg/2 Ml Vial) 4 mg IVP Q8HR PRN PRN Reason: Nausea And Vomiting Pantoprazole Sodium (Pantoprazole 40 Mg/10 Ml Vial) 40 mg IV BID [facility] Last Admin: 10/24/23 04:36 Dose: 40 mg Spironolactone (Spironolactone 25 Mg Tab) 25 mg PO DAILY [facility] Last Admin: 10/24/23 12:31 Dose: 25 mg PHYSICAL EXAMINATION: GENERAL: The patient is alert and oriented x4, Well developed, well nourished. Elderly appearing HEENT: Pupils are round and equally reacting to light. EOMI. no scleral icterus. No conjunctival pallor. Normocephalic, atraumatic. No pharyngeal erythema. No thyromegaly. CARDIOVASCULAR: S1 and S2 muffled PULMONARY: diminished breath sounds bilaterally with no wheezing or rhonchi noted. ABDOMEN: soft. Nontender on exam. non-distended, normoactive bowel sounds. No palpable organomegaly. MUSCULOSKELETAL: No joint swelling or deformity. EXTREMITIES: No cyanosis, clubbing, or pedal edema. NEUROLOGICAL: Gross neurological examination did not reveal any focal deficits. Diffuse weakness SKIN: No rashes. 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 Patient is status post cardiac catheterization as mentioned previously and discussing further with Dr. Muhammad about possible PCI intervention Recommend maximizing medical management and adjusting medications accordingly and titrating daily to monitor for tolerance Case management/social work following regarding possible LifeV[employer]. Patient currently does not have insurance and case management is working with companies regarding private pay and options. Discussed and stressed the importance of medication compliance and outpatient follow-up as patient reports he did have a heart attack that required stenting over 15 years ago and has not followed up and is not currently taking any medications. As mentioned previously patient currently has no insurance making it difficult to obtain adequate health care. Encouraged complete tobacco cessation Continue heart healthy diet Follow-up on repeat labs and monitor kidney functions and electrolytes closely Due to multiple complex medical issues, prognosis is guarded The impression and plan of care has been dictated by Mary Schmid, nurse practitioner as directed. Dr. Mendel MD I have performed a history and examination and MDM of this patient, discussed the same with the dictator, and agree with the dictator's assessment and plan as written ,documented as a scribe. Based on total visit time, I have performed more than 50% of the visit. Any additional findings or plans will be noted. Objective - Vital Signs Vital signs: Vital Signs Temp 97.9 F 10/24/23 04:00 Pulse 91 10/24/23 16:00 Resp 16 10/24/23 16:00 BP 124/65 10/24/23 16:00 Pulse Ox 94 L 10/24/23 16:00 FiO2 Intake & Output 10/24/23 10/24/23 10/25/23 06:59 18:59 06:59 Intake Total 40 1177 Output Total 200 Balance -160 1177 Intake: IV 40 165 Invasive Line 1 20 20 Invasive Line 2 20 20 Intake, IV Titration 300 Amount Sodium Chloride 0.9% 1, 300 000 ml @ 75 mls/hr IV . [id number] [facility] Rx#:[id number] Oral 712 Output: Urine 200 Other: Voiding Method Urinal Urinal # Voids 1 - Labs CBC & Chem 7: 10/24/23 09:10 10/24/23 09:10 Labs: Abnormal Lab Results - Last 24 Hours (Table) 10/24/23 Range/Units 09:10 Glucose 104 H (74-99) mg/dL
[2023-10-25] MEDS: DAPAGLIFLOZIN PROPANEDIOL 10 MG TABLET PO SCH (08:47)
[2023-10-25] MEDS: carvediloL 3.125 MG TAB PO SCH (08:47)
[2023-10-25] MEDS ORDERED: METOPROLOL SUCCINATE (ER) 25 MG TAB.ER.24H PO SCH (09:00)
[2023-10-25 10:26] LABS: African American GFR (CKD) >90 (>60 ml/min/1.73 sqM); Anion Gap 1 mmol/L; Blood Urea Nitrogen 16 mg/dL (9-20); Carbon Dioxide 31 mmol/L (22-30); Chloride 105 mmol/L (98-107); Glucose 129 mg/dL (74-99); Magnesium 1.8 mg/dL (1.6-2.3); Non-African American GFR(CKD) >90 (>60 ml/min/1.73 sqM); Potassium 4.6 mmol/L (3.5-5.1); Sodium 137 mmol/L (137-145)
[2023-10-25 10:34] VITALS: TEMP 97.9
--- NOTE | 2023-10-25 12:41 | P.PN ---
Subjective Patient is sitting comfortably in a chair Denies any dizziness lightheadedness chest pain Looks comfortable He does have a hepatojugular reflux Soft systolic murmur over the precordium Lungs are clear no rhonchi no crackles Blood pressure 103/58 106/56 pulse rate is in the 60s and 70s afebrile Sodium 137 potassium 4.6 BUN 16 and creatinine 0.9 TSH 1.3 Impression CAD, single-vessel disease Old [place] related to the left circumflex occlusion status post stenting many years back Completely and chronically occluded left circumflex vessel in the vicinity of the stent and proximally with left to left collaterals Remodeled left ventricle, dilated with severe LV dysfunction less than 20% with severe MR related to immobility of the posterior mitral leaflet apparatus Admitted with acute on chronic congestive heart failure class III, with an elevated LVEDP of 30 mmHg Severe mitral regurgitation secondary to chronic ischemic heart disease with posterior papillary muscle apparatus dysfunction Suggest Continue aspirin and statins Start carvedilol today 3.125 mg twice daily Continue dapagliflozin 10 mg p.o. daily Continue losartan in the evening Continue spironolactone 25 mg p.o. daily Tomorrow I would like to start hydralazine 10 mg 3 times a day along with isosorbide 5 mg 3 times a day for afterload reduction Gradual maximization of medications as tolerated LifeVest Wide QRS of an IVCD/RBBB type with QRS fractionation and occasional PVCs Biatrial enlargement obvious on twelve-lead EKG Objective - Vital Signs Vital signs: Vital Signs Temp 97.9 F 10/25/23 08:45 Pulse 87 10/25/23 08:45 Resp 18 10/25/23 08:45 BP 106/56 10/25/23 08:45 Pulse Ox 94 L 10/25/23 08:45 FiO2 Intake & Output 10/24/23 10/25/23 10/25/23 18:59 06:59 18:59 Intake Total 1177 40 380 Balance 1177 40 380 Intake: IV 165 40 20 Invasive Line 1 20 20 10 Invasive Line 2 20 20 10 Intake, IV Titration 300 Amount Sodium Chloride 0.9% 1, 300 000 ml @ 75 mls/hr IV . [id number] [facility] Rx#:[id number] Oral 712 360 Other: Voiding Method Urinal Urinal - Labs CBC & Chem 7: 10/24/23 09:10 10/25/23 09:00 Labs: Abnormal Lab Results - Last 24 Hours (Table) 10/25/23 Range/Units 09:00 Carbon Dioxide 31 H (22-30) mmol/L Glucose 129 H (74-99) mg/dL
[2023-10-25 15:06] VITALS: BP 120/70; PULSE 86; RESP 17
--- NOTE | 2023-10-25 17:18 | P.DS ---
Providers Date of admission: 10/21/23 14:11 Expected date of discharge: 10/25/23 Attending physician: Alonso Oglesby Consults: 10/21/23 15:06 Consult Physician Routine Consulting Provider: Angel Luis Muhammad Consult Reason/Comments: cad Do you want consulting provider notified?: Yes Primary care physician: Stated None Hospital Course: Final diagnosis Acute NSTEMI, troponin elevated up to 0.140 Severe cardiomyopathy, EF less than 20% Acute congestive heart failure, systolic dysfunction History of previous coronary artery disease with stenting History of nicotine dependence History of noncompliance with follow-up and medications 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 Patient will follow-up with Dr. Will to establish in the outpatient setting upon discharge. Patient is to continue with current medications as prescribed per cardiology and close outpatient follow-up with cardiology as scheduled. Total time taken is greater than 35 minutes. Hospital course This is a 62 year-old male who was recently admitted with chest pain, generalized weakness and feeling unwell being closely monitored. Patient with elevated troponins underwent cardiac catheterization revealing severe cardiomyopathy with an EF of less than 20% with near 100% occlusion and previous stenting with coronary artery disease. 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 Patient has not been taking any medications. Patient is being scheduled to receive a LifeVest and maximizing medical management. Close outpatient follow-up per cardiology. Patient does not have a primary care provider and resources provided to establish with 1 in the outpatient setting. Please refer to cardiology notes for further HPI. Patient reports to feeling well and would like to go home. Awaiting discharge planning and education from LifeVest telesales representative. Currently no reports of chest pain, shortness of breath, or palpitations. Patient is afebrile. No reports of nausea or vomiting and patient is tolerating diet. Patient will be discharged home today. Guarded prognosis and high risk for readmissions given patient's significant comorbidities Physical exam: Gen: This is a 62-year-old male who is awake, alert and oriented x 3, well- developed, elderly appearing, thin built HEENT: Head is atraumatic, normocephalic. Pupils equal, round. Sclerae is anicteric. NECK: Supple. No JVD. No lymphadenopathy. No thyromegaly. LUNGS: Clear to auscultation. No wheezes or rhonchi. No intercostal retractions. HEART: S1, S2 are muffled ABDOMEN: Soft. Bowel sounds are present. No masses. No tenderness. EXTREMITIES: No pedal edema. No calf tenderness. NEUROLOGICAL: Patient is awake, alert and oriented x3. Cranial nerves 2 through 12 are grossly intact. Please refer to medication reconciliation sheet for a list of medications. The impression and plan of care has been dictated by Mary Schmid Nurse Practitioner as directed. Dr. Mendel MD I have performed a history and examination and MDM of this patient, discussed the same with the dictator, and agree with the dictator's assessment and plan as written ,documented as a scribe. Based on total visit time, I have performed more than 50% of the visit. Patient Condition at Discharge: Fair Plan - Discharge Summary Discharge Rx Participant: No New Discharge Prescriptions: New Spironolactone [Aldactone] 25 mg PO DAILY #30 tab Aspirin 81 mg PO DAILY #30 tab carvediloL [Coreg] 3.125 mg PO BID-W/MEALS #60 tab Losartan [Cozaar] 25 mg PO DAILY@1845 #30 tab Isosorbide Dinitrate 5 mg PO TID #90 tablet Dapagliflozin Propanediol [Farxiga] 10 mg PO DAILY #30 tab Nicotine 14Mg/24Hr Patch [Habitrol] 1 patch TRANSDERM DAILY patch Atorvastatin [Lipitor] 40 mg PO DAILY #30 tab Mag Hydrox/Al Hydrox/Simeth [Maalox] 30 ml PO Q4HR PRN ml PRN Reason: Gi Upset hydrALAZINE HCL [Apresoline] 10 mg PO TID #90 tablet Discharge Medication List Aspirin 81 mg PO DAILY #30 tab 10/25/23 [Rx] Atorvastatin [Lipitor] 40 mg PO DAILY #30 tab 10/25/23 [Rx] Dapagliflozin Propanediol [Farxiga] 10 mg PO DAILY #30 tab 10/25/23 [Rx] Isosorbide Dinitrate 5 mg PO TID #90 tablet 10/25/23 [Rx] Losartan [Cozaar] 25 mg PO DAILY@1845 #30 tab 10/25/23 [Rx] Mag Hydrox/Al Hydrox/Simeth [Maalox] 30 ml PO Q4HR PRN ml 10/25/23 [Rx] Nicotine 14Mg/24Hr Patch [Habitrol] 1 patch TRANSDERM DAILY patch 10/25/23 [Rx] Spironolactone [Aldactone] 25 mg PO DAILY #30 tab 10/25/23 [Rx] carvediloL [Coreg] 3.125 mg PO BID-W/MEALS #60 tab 10/25/23 [Rx] hydrALAZINE HCL [Apresoline] 10 mg PO TID #90 tablet 10/25/23 [Rx] Follow up Appointment(s)/Referral(s): Scottie Morales MD [STAFF PHYSICIAN] - 2 Weeks (office to call you with follow up ) Mela Will MD [STAFF PHYSICIAN] - 1 Week Patient Instructions/Handouts: Heart Catheterization (DC) Activity/Diet/Wound Care/Special Instructions: Activity limited until follow-up Follow-up with primary care provider on discharge Follow-up with cardiology outpatient Continue taking medications as prescribed Avoid tobacco use and exposure Discharge/Stand Alone Forms: PH Area PCPs Discharge Disposition: HOME SELF-CARE
[2023-10-26] MEDS ORDERED: hydrALAZINE HCL 10 MG TAB PO SCH (06:00)
[2023-10-26] MEDS ORDERED: ISOSORBIDE DINITRATE 10 MG TAB PO SCH (07:00)
== END 2023-10-25 16:26 | disposition home or self-care (01) | DRG 280 ==
LOC: EC 13:07 → 6NMEDSUR 14:10 → OBSVTOIN 14:11 → 6NMEDSUR 16:47 → 3SCARD 17:38
PROVIDERS: ADMIT Hospitalist; ATTEND Hospitalist
PROC: B2111ZZ Fluoroscopy of Multiple Coronary Arteries using Low Osmolar Contrast (ICD-10-PCS; principal; 2023-10-24 07:30)
PROC: 4A023N7 Measurement of Cardiac Sampling and Pressure, Left Heart, Percutaneous Approach (ICD-10-PCS; principal; 2023-10-24 07:30)
DX: I21.4 Non-ST elevation (NSTEMI) myocardial infarction (principal); I50.23 Acute on chronic systolic (congestive) heart failure; I42.9 Cardiomyopathy, unspecified; I45.2 Bifascicular block; D18.03 Hemangioma of intra-abdominal structures; F17.200 Nicotine dependence, unspecified, uncomplicated; I11.0 Hypertensive heart disease with heart failure; I25.10 Atherosclerotic heart disease of native coronary artery without angina pectoris; I25.2 Old myocardial infarction; I27.20 Pulmonary hypertension, unspecified; I34.0 Nonrheumatic mitral (valve) insufficiency; I49.3 Ventricular premature depolarization; Z28.310 Unvaccinated for COVID-19
CPT/HCPCS: 36415; 71045; 76705; 76937; 80048; 80053; 80061; 82150; 83036; 83690; 83735; 84443; 84484; 85025; 85379; 85610; 85730; 93005; 93306; 93458; 94760; 96361; 96365; 96366; 96375; 96376; 99285

== ENCOUNTER → 2024-10-14 | Outpatient (CLI) | payer OTHER ==
[2024-10-15 01:51] LABS: HCT 47.6 % (39.6-50.0); HGB 15.5 g/dL (13.0-17.0); MCH 30.5 pg (27.0-32.0); MCHC 32.6 g/dL (32.0-37.0); MCV 93.5 FL (80.0-97.0); Mean Platelet Volume 9.1 FL (9.5-12.2); NRBC Per 100 WBC 0 X 10*3/uL (0.00-0.01); Platelet Count 283 X 10*3/uL (140-440); RBC 5.09 X 10*6/uL (4.40-5.60); RDW 13.2 % (11.5-14.5); WBC 9.83 X 10*3/uL (4.50-10.00)
[2024-10-15 02:18] LABS: Blood Urea Nitrogen 23.2 mg/dL (9.0-27.0); Carbon Dioxide 27.1 mmol/L (21.6-31.8); Chloride 103 mmol/L (96-109); Sodium 141 mmol/L (135-145)
== END | disposition home or self-care (01) ==
LOC: LABPAT 16:06
PROVIDERS: ATTEND Internal Medicine Clinical Cardiac Electrophysiology
DX: Z01.812 Encounter for preprocedural laboratory examination (principal); I42.8 Other cardiomyopathies; I44.7 Left bundle-branch block, unspecified; I50.9 Heart failure, unspecified
CPT/HCPCS: 80051; 82565; 84520; 85027

== ENCOUNTER 2024-10-29 12:32 | Day surgery (SDC) | payer OTHER ==
[2024-10-27 11:29] VITALS: BMI 23.7
[~2024-10-29 12:32] MED LIST: ceFAZolin 1 GM in SODIUM CHLORIDE 0.9% IRRIG BTL 250 ML IRRIGATION PRN
[2024-10-29] MEDS: SODIUM CHLORIDE 0.9% 1,000 ML IV SCH ×2 (13:30)
[2024-10-29] MEDS: IV FLUID CONTINUATION 1,000 ML IV ONE (13:33)
[2024-10-29] MEDS ORDERED: diphenhydrAMINE 50 MG/ML 1 ML VIAL ONE (13:58)
[2024-10-29] MEDS ORDERED: fentaNYL (PF) 50 MCG/ML 2 ML AMP ONE (13:58)
[2024-10-29] MEDS ORDERED: MIDAZOLAM 2 MG/2 ML VIAL ONE (13:58)
[2024-10-29] MEDS: IOPAMIDOL-370 100ML BTL IVP ONE (14:40)
[2024-10-29] MEDS: LIDOCAINE 1% INJ 10MG/ML (20 ML MDV) SQ ONE ×2 (14:51→14:55)
[2024-10-29] MEDS: ROPIVACAINE 5 MG/ML 30 ML VIAL MISCELLANE ONE (14:52)
[2024-10-29] MEDS: ceFAZolin 2 GM in DEXTROSE 5% IN WATER 50 ML IVPB PRN (15:00)
[2024-10-29] MEDS ORDERED: DICYCLOMINE 10 MG CAP PO PRN (16:49)
[2024-10-29] MEDS ORDERED: ACETAMINOPHEN TAB 325 MG TAB PO PRN (16:52)
--- NOTE | 2024-10-29 17:05 | P.EPPROC ---
- EP Procedure Note Electrophysiology Procedure Note: Diagnosis Cardiomyopathy, chronic ischemic in nature Congestive heart failure [place] [employer] class 2 Wide QRS of the left bundle branch block morphology, QRS width 148 ms measured on the PRUKA system MD interval 200 ms On guide line directed medical treatment for greater than 3 months No improvement in LV systolic function despite revascularization in the past as well as maximally tolerated medical treatment When the patient came into the EP lab and EKGs connected to the PRMagento recording system, the patient had a left bundle branch block morphology on twelve-lead EKG and the QRS width was 148 ms. Since he had a progressive decline in his LV systolic function, previously at 35% and now between 20-25% despite percutaneous revascularization and guideline directed medical treatment, the decision was made to proceed with a biventricular ICD in place of originally planned single- chamber ICD, given the presence of the left bundle branch block with a wide QRS as the likely reason for progressive cardiomyopathy and failure of medical treatment. This was discussed with the patient's daughters prior to implant. The patient had undergone a cardiac MRI which revealed an extensive transmural scar along the lateral wall of the left ventricle and a subendocardial scar in the septum and the inferior wall. Therefore a decision was made to avoid pacing along the lateral wall. Instead pacing the left bundle from the septum was chosen based on the MRI findings and the location of the scar. Procedure: Biventricular ICD implantation for management of risk of sudden cardiac and congestive heart failure Result: Successful biventricular ICD implantation, Atrial lead: Make model #5072, 52 cm in length. P waves 4.1 mV, pacing impedance 494 ohms and pacing threshold 0.5 V at 0.4 ms RV ICD lead: Medtronic ICD lead, single coil, model number 6935M, 62 cm in length. Initial R waves 7.8 mV bipolar, pacing impedance 646 ohms, high-voltage impedance 82 ohms, pacing threshold 0.75 V at 0.4 ms. At the end of the case the bipolar R waves were about 3.1 mV but the unipolar R waves were excellent. Therefore an integrated bipolar mode was selected for sensing. Conduction system pacing lead: Medtronic model #3830, 69 cm in length. Pacing impedance 608 ohms, pacing threshold less than 0.5 V at 0.4 ms Paced QRS had a pseudo right bundle branch block pattern with intermittent Qr pattern the pseudo right bundle branch block pattern had delayed terminal QRS signals consistent with septal scar. However the stimulus to peak activation time was 76 ms When implanting the left bundle lead, mechanically right bundle branch block morphology was produced. The stimulus to peak activation time at baseline was 61 ms. Therefore the differential between the paced in the intrinsic activation of the left ventricle was 15 ms Procedure details: Patient was brought to the EP lab in a fasting state. Written informed consent was obtained prior to the procedure. Options, pros and cons, benefits and risks and complications discussed with patient in detail prior to the procedure (shared decision making) previously. Importance of continuing medical treatment emphasized previously. Alternatives discussed previously. Left upper extremity venogram performed. 15 mL IV dye injected in the left arm. Patent axillary/subclavian vein The left pectoral area was prepped and draped as a protocol. IV antibiotics administered 1% lidocaine was used for local anesthesia. A 4 cm incision was made parallel to the deltopectoral groove, about 1.5 cm medial to it. The incision was carried down to the level of the pectoralis muscle and the subfascial pocket was made. Hemostasis was assured. The axillary vein access was obtained. Appropriately sized into to see sheaths were placed. ICD lead implanted in the right ventricle and screwed in. ICD lead tested for threshold, sensing, impedances and tested with high output pacing for diaphragmatic stimulation. Negative diaphragmatic stimulation Atrial lead placed in the right atrial appendage and tested for threshold, sensing, impedance, and tested with high output pacing. Phrenic nerve stimulation negative Coronary sinus/left ventricular epicardial lead placement avoided on account of extensive lateral wall scar noted on cardiac MRI Conduction system pacing lead placement with left bundle pacing with parameters as described above Leads secured to the underlying pectoral muscle after removing sheaths . Pocket irrigated with antibiotic solution. Antibiotic pouch placed Leads connected to the biventricular ICD generator. Wound closed in 3 layers and dressed per protocol Biventricular ICD interrogated and programmed. Appropriate pacing parameters, antitachycardia therapies with antitachycardia pacing cardioversion defibrillations programmed. AV delay and biventricular pacing parameters programmed to achieve optimal physiologic pacing paced AV delay of 130 ms, sensed AV delay of 100 ms Zirtek Patient tolerated the procedure well without any acute complications. See scanned device report in EMR for lead details
[2024-10-29] MEDS: ACETAMINOPHEN IV (For NPO) 1,000 MG in EMPTY BAG 1 BAG IVPB ONE (17:22)
[2024-10-29] MEDS ORDERED: ceFAZolin 2 GM in DEXTROSE 5% IN WATER 50 ML IVPB SCH (17:30)
[2024-10-29] MEDS: carvediloL 12.5 MG TAB PO SCH (21:28)
[2024-10-29] MEDS: ceFAZolin 2 GM in DEXTROSE 5% IN WATER 50 ML IVPB SCH (21:28)
[2024-10-29] MEDS: SACUBITRIL/VALSARTAN 24 MG-26 MG TABLET PO SCH (21:28)
[2024-10-30 02:24] VITALS: TEMP 98.1
[2024-10-30 07:36] VITALS: BP 112/65; PULSE 69; RESP 16
--- NOTE | 2024-10-30 08:18 | XR ---
EXAMINATION TYPE: XR chest 2V DATE OF EXAM: 10/30/2024 7:47 AM COMPARISON: 10/21/2023 CLINICAL INDICATION: Male, 64 years old with history of Lead placement check, TECHNIQUE: XR chest 2V view(s) obtained. FINDINGS: The heart size is normal. The pulmonary vasculature is normal. The lungs are clear. IMPRESSION: 1. No acute pulmonary process. [facility], , 10/30/2024 8:15 AM
[2024-10-30] MEDS: ASPIRIN 81 MG PO SCH (08:32)
[2024-10-30] MEDS: ATORVASTATIN 80 MG TAB PO SCH (08:32)
[2024-10-30] MEDS: DAPAGLIFLOZIN PROPANEDIOL 10 MG TABLET PO SCH (08:32)
[2024-10-30] MEDS: SPIRONOLACTONE 25 MG TAB PO SCH (08:33)
--- NOTE | 2024-11-02 17:42 | P.DS ---
Providers Attending physician: Scottie Morales Primary care physician: Stated None Hospital Course: Patient is doing well. He denies any chest discomfort dizziness lightheadedness or palpitations Heart sounds S1-S2 normal Breath sounds are clear No hematoma Vitals are stable heart rates are normal Impression successful BiV ICD implantation for severe cardiomyopathy with a wide QRS of 140 ms The initial plan was a single-chamber ICD but when his QRS width was remeasured on the PRUKA system, the QRS width was 140 ms This makes sense with his initial improvement in LV function followed by progressive deterioration despite revascularization and guideline directed medical treatment which is well maximized he has a left bundle branch block with electrical dyssynchrony resulting in progressive worsening of heart failure and cardiomyopathy/ejection fraction He underwent successful BiV ICD implantation and has been discharged home on his usual medications which have been well maximized I will see him in the office in a week's time His chest x-ray is within normal limits His device interrogation is within normal limits Plan - Discharge Summary Discharge Rx Participant: No New Discharge Prescriptions: Continue RX: Spironolactone [Aldactone] 25 mg PO DAILY #30 tab RX: Aspirin 81 mg PO DAILY #30 tab RX: Atorvastatin [Lipitor] 80 mg PO DAILY RX: Dapagliflozin Propanediol [Farxiga] 10 mg PO DAILY #30 tab RX: Dicyclomine [Bentyl] 10 mg PO TID PRN PRN Reason: Bloating RX: carvediloL 25 mg PO BID RX: Sacubitril/Valsartan [Entresto 24 mg-26 mg Tablet] 1 each PO BID Discharge Medication List RX: Aspirin 81 mg PO DAILY #30 tab 10/25/23 [Rx] RX: Dapagliflozin Propanediol [Farxiga] 10 mg PO DAILY #30 tab 10/25/23 [Rx] RX: Spironolactone [Aldactone] 25 mg PO DAILY #30 tab 10/25/23 [Rx] RX: Atorvastatin [Lipitor] 80 mg PO DAILY 10/27/24 [History] RX: Dicyclomine [Bentyl] 10 mg PO TID PRN 10/27/24 [History] RX: Sacubitril/Valsartan [Entresto 24 mg-26 mg Tablet] 1 each PO BID 10/27/24 [History] RX: carvediloL 25 mg PO BID 10/27/24 [History] Follow up Appointment(s)/Referral(s): Scottie Morales MD [STAFF PHYSICIAN] - 1 Week (OFFICE WILL CALL PATIENT WITH A FOLLOW UP APPOINTMENT DATE/TIME FOR DEVICE CHECK. ) Patient Instructions/Handouts: Pacemaker (DC), Pacemaker (GEN) Activity/Diet/Wound Care/Special Instructions: PATIENT EDUCATION MATERIAL Instructions following a heart rhythm device implant. 1. Keep dressing DRY for 5 DAYS. You may cover the area with Saran or Cling Wrap, prior to a shower. 2. The dressing will be removed in the [facility] at [facility]. Absorbable sutures were used to close the wound. 3. Avoid raising the left arm above the shoulder level. 4 week restriction 4. Avoid arm movements, like backscratching, rubbing the head, or pulling on a cord. 4 weeks restriction 5. Gentle range of motion movements of the shoulder, closest to the incision should be performed to avoid a frozen shoulder. (Pendulum exercises of the shoulder) 6. The opposite arm may be used freely. 7. Avoid driving for 7 days. 8. Avoid activities such as golfing, swimming, weed whacking, lifting more than 10 pounds weight, bowling, gymnastics and weight training/lifting. (6 weeks restriction) 9. Activities such as wood chopping with an axe, pull-ups in the gymnasium, power lifting, arc-welding, being close to home induction cooktops will always be a problem. 10. Arm sling is only a reminder not to raise the arm above the head. You do not need to keep the arm completely immobilized. Your free to move the arm and use it and for normal activities. In case of any problems, please call [facility], @ [phone], Attention: Device Clinic Device clinic follow-up in 5 days Follow-up with primary tree and shrub technician in 2-3 months Discharge Disposition: HOME SELF-CARE
== END 2024-10-30 11:55 | disposition home or self-care (01) ==
LOC: CATHEP 12:32 → 6NMEDSUR 16:30 → CATHEP 10-30 11:55
PROVIDERS: ATTEND Internal Medicine Clinical Cardiac Electrophysiology
DX: I42.0 Dilated cardiomyopathy (principal); I25.5 Ischemic cardiomyopathy; I11.0 Hypertensive heart disease with heart failure; I50.32 Chronic diastolic (congestive) heart failure; I25.10 Atherosclerotic heart disease of native coronary artery without angina pectoris; I25.2 Old myocardial infarction; Z95.5 Presence of coronary angioplasty implant and graft; I34.0 Nonrheumatic mitral (valve) insufficiency; I44.7 Left bundle-branch block, unspecified; I49.3 Ventricular premature depolarization; Z79.82 Long term (current) use of aspirin; Z79.84 Long term (current) use of oral hypoglycemic drugs; Z79.899 Other long term (current) drug therapy; Z87.891 Personal history of nicotine dependence
CPT/HCPCS: 33249; 71046; C1769 ×2; C1892 ×2; C1730; C1887; C1898; C1895; C1882; J2250; J1200; J0690; J2003; J3010; J2795; J0131; Q9967